=== PATIENT | female | born 1970 | race Caucasian/White ===

== ENCOUNTER 2017-12-14 15:39 | Emergency (ER) | payer OTHER ==
[~2017-12-14] VITALS: Ht 172.7 cm; Wt 90.7 kg
[~2017-12-14 15:39] MED LIST: AUGMENTIN 875 M1 TAB PO; CHANTIX STARTER1 TAB PO; CLARITIN10 MG PO; CYMBALTA30 M1 PO; NEURONTIN800 MG PO; PHENERGAN25 M1 PO; TRAMADOL HCL50 MG PO; TRAZODO50 MG PO; VICODIN 500 MG-1 TAB PO; ZANTAC 150150 MG PO; ZITHROMAX Z PA250 MG PO; ZOFRAN ODT4 MG; ZOFRAN4 MG PO
[2017-12-14] MEDS ORDERED: SUBOXONE 8 MG-1 EACH SL (15:50)
[2017-12-14] MEDS ORDERED: MELATONIN3 MG PO (15:51)
[2017-12-14] MEDS ORDERED: MEDROL DOSEPAK4 MG PO (16:20)
[2017-12-14] MEDS ORDERED: CYCLOBENZAPRINE10 MG PO (16:20)
[2017-12-14] MEDS ORDERED: NAPROSYN500 MG PO (16:20)
== END 2017-12-14 16:30 | disposition home or self-care (01) ==
LOC: ED 15:39
DX: S46.811A Strain of other muscles, fascia and tendons at shoulder and upper arm level, right arm, initial encounter (principal); F17.200 Nicotine dependence, unspecified, uncomplicated; Z98.51 Tubal ligation status; Z98.890 Other specified postprocedural states; Z79.899 Other long term (current) drug therapy; Z88.2 Allergy status to sulfonamides; Z88.6 Allergy status to analgesic agent; X58.XXXA Exposure to other specified factors, initial encounter; Y93.89 Activity, other specified; Y92.89 Other specified places as the place of occurrence of the external cause; Y99.9 Unspecified external cause status

== ENCOUNTER 2018-08-29 10:06 | Emergency (ER) | payer OTHER ==
[~2018-08-29] VITALS: Ht 172.7 cm; Wt 77.1 kg
[~2018-08-29 10:06] MED LIST changes: +CYCLOBENZAPRINE10 MG PO; +MEDROL DOSEPAK4 MG PO; +MELATONIN3 MG PO; +NAPROSYN500 MG PO; +SUBOXONE 8 MG-1 EACH SL
[2018-08-29] MEDS ORDERED: PROAIR HFA8.5 GM INH (10:16)
[2018-08-29] MEDS ORDERED: PREDNISONE10 MG PO (10:16)
[2018-08-29] MEDS ORDERED: FLONASE ALLERG9.9 ML NAS (10:16)
== END 2018-08-29 10:48 | disposition home or self-care (01) ==
LOC: ED 10:06
DX: B34.9 Viral infection, unspecified (principal); R03.0 Elevated blood-pressure reading, without diagnosis of hypertension; F17.200 Nicotine dependence, unspecified, uncomplicated; Z88.2 Allergy status to sulfonamides; Z88.8 Allergy status to other drugs, medicaments and biological substances; Z79.899 Other long term (current) drug therapy

== ENCOUNTER 2018-09-11 16:52 | Emergency (ER) | payer OTHER ==
[~2018-09-11] VITALS: Ht 172.7 cm; Wt 77.1 kg
[~2018-09-11 16:52] MED LIST changes: +FLONASE ALLERG9.9 ML NAS; +PREDNISONE10 MG PO; +PROAIR HFA8.5 GM INH
[2018-09-11] MEDS ORDERED: AUGMENTIN 875875 MG PO (18:52)
[2018-09-11] MEDS ORDERED: PREDNISONE50 MG PO (18:52)
== END 2018-09-11 18:58 | disposition home or self-care (01) ==
LOC: ED 16:52
DX: J32.0 Chronic maxillary sinusitis (principal); Z88.2 Allergy status to sulfonamides; Z88.8 Allergy status to other drugs, medicaments and biological substances

== ENCOUNTER 2018-10-18 12:34 | Emergency (ER) | payer OTHER ==
[~2018-10-18] VITALS: Ht 172.7 cm; Wt 79.4 kg
[~2018-10-18 12:34] MED LIST changes: +AUGMENTIN 875875 MG PO; +PREDNISONE50 MG PO
[2018-10-18] MEDS ORDERED: DELTASONE20 M1 PO (13:16)
[2018-10-18] MEDS ORDERED: VIBRAMYCIN100 MG PO (13:16)
== END 2018-10-18 13:28 | disposition home or self-care (01) ==
LOC: ED 12:34
DX: J44.1 Chronic obstructive pulmonary disease with (acute) exacerbation (principal); J06.9 Acute upper respiratory infection, unspecified; F17.200 Nicotine dependence, unspecified, uncomplicated; Z88.2 Allergy status to sulfonamides; Z88.8 Allergy status to other drugs, medicaments and biological substances; Z79.899 Other long term (current) drug therapy

== ENCOUNTER → 2018-12-26 | Outpatient (CLI) | payer OTHER ==
[~2018-12-26] MED LIST changes: +DELTASONE20 M1 PO; +VIBRAMYCIN100 MG PO
== END | disposition home or self-care (01) ==
LOC: RAD 16:56
DX: J45.40 Moderate persistent asthma, uncomplicated (principal); J20.9 Acute bronchitis, unspecified; J43.9 Emphysema, unspecified

== ENCOUNTER 2020-07-19 14:54 | Inpatient (IN) | payer OTHER ==
[~2020-07-19] VITALS: Ht 172.7 cm; Wt 88.6 kg
[2020-07-19 15:08] VITALS: BP 129/98
--- NOTE | 2020-07-19 15:20 | NUR ---
O2 INCREASED TO 6L NC FOR POX 88% ON 6L NC.
[2020-07-19 16:05] LABS: ABG BASE EXCESS 0.2 mmol/L (-2.0-2.0); ARTERIAL BLOOD GAS PH 7.484 (7.35-7.45)
[2020-07-19 16:10] LABS: BASO # 0.1 10*3/uL (0.0-0.1); BASO % 0.5 % (0.0-1.0); EOS % 0.3 % (1.0-4.0); HEMATOCRIT 37.4 % (37.0-47.0); LYMPH # 1.4 10*3/uL (1.3-4.4); LYMPH % 9.1 % (27.0-41.0); MEAN CELL VOLUME 87.8 fl (81.0-99.0); MEAN CORPUSCULAR HGB 27.9 pg (27.0-31.0); MEAN CORPUSCULAR HGB CONC 31.8 g/dl (33.0-37.0); MONO % 6.4 % (3.0-9.0); NEUT # 12.7 10*3/uL (2.3-7.9); NEUT % 82.7 % (47.0-73.0); PLATELET COUNT AUTOMATED 292 10*3/uL (130-400); RED BLOOD COUNT 4.26 10*6/uL (4.10-5.10); WHITE BLOOD COUNT 15.4 10*3/uL (4.8-10.8)
[2020-07-19 16:20] LABS: ACT PARTIAL THROMBO TIME 27.7 SECONDS (20.0-32.1)
[2020-07-19 16:24] LABS: ALBUMIN 2.7 gm/dl (3.1-4.5); ALKALINE PHOSPHATASE 184 U/L (45-117); BUN 16 mg/dl (7-24); CHLORIDE 108 mmol/L (98-107); CREATININE 0.82 mg/dL (0.55-1.02); POTASSIUM 3.4 mmol/L (3.5-5.1); SGOT/AST 207 IU/L (3-35); SGPT/ALT 169 U/L (12-78); SODIUM 140 mmol/L (136-145)
[2020-07-19 16:29] LABS: TROPONIN I 0.397 ng/ml (<0.045)
--- NOTE | 2020-07-19 17:04 | NUR ---
UNABLE TO TOLERATE BIPAP. PLACED ON HIGH FLOW CANNULA AT 10L.
[2020-07-19 17:12] VITALS: BP 124/79
[2020-07-19 18:16] VITALS: BP 109/58
[2020-07-19 18:35] VITALS: BP 108/67; BP 124/79
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
--- NOTE | 2020-07-19 19:45 | NUR ---
CALLED UNIT TO SEE IF THEY WERE READY FOR PT, NURSE NOT AVAILABLE AT TIME. WILL CALL BACK
--- NOTE | 2020-07-19 20:16 | NUR ---
CALLED UNIT AGAIN TO SEE IF THEY WERE READY FOR PT BUT WAS TOLD NURSE WAS NOT READY FOR PT YET AND WILL CALL WHEN READY
--- NOTE | 2020-07-19 20:30 | NUR ---
PT RESTING IN BED. NO ACUTE DISTRESS OR NEEDS AT THIS TIME.
--- NOTE | 2020-07-19 22:00 | NUR ---
2100CC OF URINE OBTAINED FROM CERVANTES.
--- NOTE | 2020-07-19 22:41 | NUR ---
RESPIRATORY ADVISED ME TO TRANSFER PT WITH NRB ON 10L 02 AND WHEN PT GOT INTO ROOM TO THEN CONNECT THE HIGH FLOW 02 BACK UP. PT TOLERATED TRANSFER WELL.
[2020-07-19 23:00] VITALS: BP 115/75
--- NOTE | 2020-07-19 23:00 | NUR ---
PATIENT DOES NOT WISH TO HAVE PHOTOS TAKEN; PATIENT STATES THAT HER SISTER HAS PHOTOS
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
[2020-07-19] MEDS ORDERED: PROAIR HFA8.5 GM INH (23:31)
[2020-07-19] MEDS ORDERED: CETIRIZINE HYDR10 MG PO (23:31)
[2020-07-19] MEDS ORDERED: DULOXETINE HCL60 MG PO (23:31)
--- NOTE | 2020-07-20 02:00 | NUR ---
Patient resting quietly with no c/o discomfort. Respirations easy and regular. Vital signs stable. No overt distress. SIRISHA KAPOOR
--- NOTE | 2020-07-20 02:14 | NUR ---
TORADOL GIVEN FOR C/O BACK PAIN
[2020-07-20 02:39] LABS: BILIRUBIN Negative (Negative); BLOOD Trace-Intact (Negative); CLARITY Clear (Clear); COLOR Yellow (Yellow); GLUCOSE Negative (Negative); KETONE Trace (Negative); LEUKO ESTERASE 1+ (Negative); NITRITE Negative (Negative); SPECIFIC GRAVITY 1.025 (1.001-1.030)
--- NOTE | 2020-07-20 02:49 | NUR ---
CARDIO ANSWERING SERVICE NOTIFIED OF CONSULT
[2020-07-20 03:07] LABS: BACTERIA 1+; EPITHELIAL CELLS 0-2; MUCOUS 1+; WBC 16-20 wbc/hpf (0-5)
[2020-07-20 04:48] VITALS: BP 127/90
[2020-07-20 06:10] LABS: BASO % 0.3 % (0.0-1.0); EOS % 0.2 % (1.0-4.0); HEMATOCRIT 38.2 % (37.0-47.0); LYMPH # 0.7 10*3/uL (1.3-4.4); LYMPH % 6.2 % (27.0-41.0); MEAN CORPUSCULAR HGB 27.5 pg (27.0-31.0); MEAN CORPUSCULAR HGB CONC 30.9 g/dl (33.0-37.0); MEAN PLATELET VOLUME 11.2 fl (9.6-12.3); MONO # 0.4 10*3/uL (0.1-1.0); MONO % 3.6 % (3.0-9.0); NEUT # 10.4 10*3/uL (2.3-7.9); NEUT % 88.6 % (47.0-73.0); PLATELET COUNT AUTOMATED 252 10*3/uL (130-400); RED BLOOD COUNT 4.29 10*6/uL (4.10-5.10); RED CELL DISTRI WIDTH 14.9 % (0-14.5); WHITE BLOOD COUNT 11.7 10*3/uL (4.8-10.8)
--- NOTE | 2020-07-20 06:12 | NUR ---
DR CHRISTY NOTIFIED OF CONSULT STATES TO GET BLOOD GAS THIS AM AND HE WILL SEE HER
[2020-07-20 06:14] LABS: ALBUMIN 2.6 gm/dl (3.1-4.5); BUN 18 mg/dl (7-24); CHLORIDE 106 mmol/L (98-107); CREATININE 0.78 mg/dL (0.55-1.02); POTASSIUM 3.6 mmol/L (3.5-5.1); SGOT/AST 96 IU/L (3-35); SGPT/ALT 158 U/L (12-78); SODIUM 136 mmol/L (136-145); TOTAL PROTEIN 7.3 gm/dL (6.4-8.2)
[2020-07-20 06:23] LABS: ALKALINE PHOSPHATASE 173 U/L (45-117); CPK 90 U/L (26-192); LDH 437 U/L (84-246)
[2020-07-20 08:00] VITALS: BP 114/66
[2020-07-20 08:36] LABS: ABG BASE EXCESS 0.4 mmol/L (-2.0-2.0); ARTERIAL BLOOD GAS PH 7.468 (7.35-7.45)
--- NOTE | 2020-07-20 09:00 | NUR ---
CM attempted to reach patient via phone with no success. Will follow up at a later time. CM will continue to follow for any discharge planning needs. She is in COVID isolation.
--- NOTE | 2020-07-20 09:10 | NUR ---
PT TEARFUL AND HAVING ANXIETY, C/O OF GENERALIZED DISCOMFORT RATING 5/10 PRN TYLENOL GIVEN AND ONE TIME DOSE OF VISTARIL
--- NOTE | 2020-07-20 10:00 | NUR ---
PT RESTING IN BED WITH EYES CLOSED NO COMPLAINTS AT THIS TIME,
[2020-07-20 12:00] VITALS: BP 105/64
--- NOTE | 2020-07-20 12:30 | NUR ---
PT AGREEING TO WEAR BIPAP, RESP NOTIFIED AND NOTIFIED
[2020-07-20 15:59] LABS: ABG BASE EXCESS 1.5 mmol/L (-2.0-2.0); ARTERIAL BLOOD GAS PH 7.428 (7.35-7.45)
[2020-07-20 16:00] VITALS: BP 115/73
[2020-07-20 20:00] VITALS: BP 92/79
--- NOTE | 2020-07-20 20:00 | NUR ---
PATIENT ON HFNC, STATES SHE WILL WAIT FOR RESPIRATORY TO BE PUT N BIPAP
[2020-07-21] VITALS: BP 100/68
--- NOTE | 2020-07-21 06:00 | NUR ---
IBUPROFEN GIVEN PER REQUEST FOR CHRONIC PAIN AND HEADACHE. WILL MONITOR. BIPAP IN USE.
[2020-07-21 06:26] LABS: BASO % 0.2 % (0.0-1.0); HEMATOCRIT 37.3 % (37.0-47.0); LYMPH % 8.4 % (27.0-41.0); MEAN CELL VOLUME 89.2 fl (81.0-99.0); MEAN CORPUSCULAR HGB 27.5 pg (27.0-31.0); MEAN CORPUSCULAR HGB CONC 30.8 g/dl (33.0-37.0); MEAN PLATELET VOLUME 11.2 fl (9.6-12.3); MONO # 0.6 10*3/uL (0.1-1.0); NEUT # 10.6 10*3/uL (2.3-7.9); NEUT % 85.5 % (47.0-73.0); PLATELET COUNT AUTOMATED 299 10*3/uL (130-400); RED BLOOD COUNT 4.18 10*6/uL (4.10-5.10); RED CELL DISTRI WIDTH 14.9 % (0-14.5); WHITE BLOOD COUNT 12.4 10*3/uL (4.8-10.8)
[2020-07-21 06:56] LABS: ALBUMIN 2.4 gm/dl (3.1-4.5); ALKALINE PHOSPHATASE 134 U/L (45-117); BUN 22 mg/dl (7-24); CHLORIDE 109 mmol/L (98-107); CREATININE 0.64 mg/dL (0.55-1.02); LDH 322 U/L (84-246); SGOT/AST 51 IU/L (3-35); SGPT/ALT 128 U/L (12-78); SODIUM 142 mmol/L (136-145); TOTAL PROTEIN 6.8 gm/dL (6.4-8.2)
[2020-07-21 08:00] VITALS: BP 97/40
[2020-07-21 08:07] LABS: ABG BASE EXCESS 1.3 mmol/L (-2.0-2.0); ARTERIAL BLOOD GAS PH 7.407 (7.35-7.45)
--- NOTE | 2020-07-21 09:17 | NUR ---
Lead Simulation Modeling Engineer in to talk to patient. Patient states lives at home with her sister. There are 0 steps in the home. Physician: Joseph Huynh [facility]: [facility] Home health services: none Patient's level of ADLs: MINIMAL ASSIST Patient has working utilities: yes DME: walker Follow-up physician's appointment after d/c: will be made by the hospitalist nurse director upon discharge Does patient want to access PORTAL?: no Discharge plan discussed with patient. She lives at home with he sister. She is independent in her ADLs and ambulates with a walker. Discussed home health care services and she is unsure of her home needs at this time. CM will continue to follow for any discharge planning needs. When medically stable she will be discharged to home. She states her sister will provide transportation on discharge. ZUHAIR MARRERO
--- NOTE | 2020-07-21 09:17 | NUR ---
Baling Press Operator spoke to patient via phone. Patient states lives at home with her sister. There are 0 steps in the home. Physician: Joseph Huynh [facility]: [facility] Home health services: none Patient's level of ADLs: MINIMAL ASSIST Patient has working utilities: yes DME: walker Follow-up physician's appointment after d/c: will be made by the hospitalist nurse director upon discharge Does patient want to access PORTAL?: no Discharge plan discussed with patient. She lives at home with he sister. She is independent in her ADLs and ambulates with a walker. Discussed home health care services and she is unsure of her home needs at this time. CM will continue to follow for any discharge planning needs. When medically stable she will be discharged to home. She states her sister will provide transportation on discharge. ZUHAIR MARRERO
[2020-07-21 12:00] VITALS: BP 106/60
--- NOTE | 2020-07-21 13:24 | NUR ---
CERVANTES CATHETER REMOVED PER ORDER.
[2020-07-21 16:00] VITALS: BP 82/54
--- NOTE | 2020-07-21 16:42 | NUR ---
PT MEDICATED WITH PRN MOTRIN FOR C/O A HEADACHE AND BACK PAIN. WILL MONITOR.
[2020-07-21 20:00] VITALS: BP 100/58
[2020-07-22] VITALS: BP 106/55
--- NOTE | 2020-07-22 00:05 | NUR ---
PATIENT PLACED ON BIPAP FOR HS
--- NOTE | 2020-07-22 00:07 | NUR ---
MEDICATED WITH PRN MOTRIN FOR CO BODY ACHES AND HEADACHE. WILL ASSESS EFFECTIVENESS.
--- NOTE | 2020-07-22 01:07 | NUR ---
PATIENT SLEEPING. RESP EASY AND REGULAR. MOTRIN APPEARS TO BE EFFECTIVE. CALL LIGHT IN REACH.
--- NOTE | 2020-07-22 03:41 | NUR ---
24 HR chart check completed.
--- NOTE | 2020-07-22 05:03 | NUR ---
PATIENT MEDICATED WITH PRN TYLENOL FOR CO A HEADACHE. WILL ASSESS EFFECTIVENESS. CALL LIGHT IN REACH.
[2020-07-22 06:39] LABS: BASO % 0.1 % (0.0-1.0); EOS % 0.1 % (1.0-4.0); HEMATOCRIT 39.2 % (37.0-47.0); LYMPH % 13.5 % (27.0-41.0); MEAN CELL VOLUME 90.7 fl (81.0-99.0); MEAN CORPUSCULAR HGB 27.5 pg (27.0-31.0); MEAN CORPUSCULAR HGB CONC 30.4 g/dl (33.0-37.0); MEAN PLATELET VOLUME 10.5 fl (9.6-12.3); MONO % 6.9 % (3.0-9.0); NEUT # 11.4 10*3/uL (2.3-7.9); PLATELET COUNT AUTOMATED 314 10*3/uL (130-400); RED BLOOD COUNT 4.32 10*6/uL (4.10-5.10); RED CELL DISTRI WIDTH 14.9 % (0-14.5); WHITE BLOOD COUNT 14.7 10*3/uL (4.8-10.8)
[2020-07-22 07:06] LABS: ALBUMIN 2.4 gm/dl (3.1-4.5); ALKALINE PHOSPHATASE 125 U/L (45-117); BUN 24 mg/dl (7-24); CHLORIDE 110 mmol/L (98-107); CREATININE 0.72 mg/dL (0.55-1.02); POTASSIUM 3.9 mmol/L (3.5-5.1); SGOT/AST 31 IU/L (3-35); SGPT/ALT 112 U/L (12-78); SODIUM 144 mmol/L (136-145); TOTAL PROTEIN 6.6 gm/dL (6.4-8.2)
[2020-07-22 08:52] LABS: ABG BASE EXCESS 1.9 mmol/L (-2.0-2.0); ARTERIAL BLOOD GAS PH 7.421 (7.35-7.45)
[2020-07-22 09:00] VITALS: BP 109/61
[2020-07-22 12:00] VITALS: BP 104/74
[2020-07-22 16:00] VITALS: BP 104/56
[2020-07-22 20:00] VITALS: BP 117/73
--- NOTE | 2020-07-22 23:23 | NUR ---
PATIENT DOES NOT WANT TO GO ON BIPAP AT THIS TIME. PATIENT CURRENTLY ON 8L SPO2 96%.
[2020-07-23] VITALS: BP 120/82
--- NOTE | 2020-07-23 00:19 | NUR ---
PATIENT PLACED ON BIPAP 14/10 50%
--- NOTE | 2020-07-23 03:29 | NUR ---
CHART CHECK COMPLETE.
[2020-07-23 06:42] LABS: BUN 19 mg/dl (7-24); CHLORIDE 108 mmol/L (98-107); CREATININE 0.67 mg/dL (0.55-1.02); SODIUM 142 mmol/L (136-145)
[2020-07-23 07:40] LABS: ABG BASE EXCESS 4.3 mmol/L (-2.0-2.0); ARTERIAL BLOOD GAS PH 7.406 (7.35-7.45)
[2020-07-23 08:00] VITALS: BP 115/88
[2020-07-23 12:00] VITALS: BP 122/65
[2020-07-23 16:00] VITALS: BP 130/62
--- NOTE | 2020-07-23 20:02 | NUR ---
PATIENT PLACED ON BIPAP AT THIS TIME. TOLERATING WELL.
--- NOTE | 2020-07-23 21:44 | NUR ---
PATIENT REMAINS ON BIPAP WITH NO DISTRESS NOTED.
[2020-07-24] VITALS: BP 100/52
--- NOTE | 2020-07-24 00:30 | NUR ---
Pt placed back on BiPap 14/10 and 50% - Alarms on and audible.
--- NOTE | 2020-07-24 03:40 | NUR ---
24 HR chart check completed.
--- NOTE | 2020-07-24 04:58 | NUR ---
PATIENT OFF OF BIPAP AT THIS TIME PER REQUEST. PLACED ON 12 LITERS HIGH FLOW NASAL CANNULA.
[2020-07-24 06:33] LABS: BASO % 0.2 % (0.0-1.0); EOS % 0.2 % (1.0-4.0); HEMATOCRIT 43.4 % (37.0-47.0); LYMPH # 2.7 10*3/uL (1.3-4.4); LYMPH % 15.8 % (27.0-41.0); MEAN CELL VOLUME 90.4 fl (81.0-99.0); MEAN CORPUSCULAR HGB 27.3 pg (27.0-31.0); MEAN CORPUSCULAR HGB CONC 30.2 g/dl (33.0-37.0); MEAN PLATELET VOLUME 10.5 fl (9.6-12.3); MONO % 5.8 % (3.0-9.0); NEUT # 12.9 10*3/uL (2.3-7.9); NEUT % 76.2 % (47.0-73.0); PLATELET COUNT AUTOMATED 368 10*3/uL (130-400); RED CELL DISTRI WIDTH 14.6 % (0-14.5)
--- NOTE | 2020-07-24 06:38 | NUR ---
PATIENT RESTING IN BED WITH NO S/S OF DISTRESS. DID WELL ON THE BIPAP THROUGHOUT THE NIGHT. BED IN LOWEST POSITION, CALL LIGHT IN REACH
[2020-07-24 06:49] LABS: BUN 17 mg/dl (7-24); CHLORIDE 103 mmol/L (98-107); CREATININE 0.72 mg/dL (0.55-1.02); POTASSIUM 3.5 mmol/L (3.5-5.1); SODIUM 140 mmol/L (136-145)
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
[2020-07-24 08:00] VITALS: BP 109/68
[2020-07-24 08:43] LABS: ABG BASE EXCESS 6.9 mmol/L (-2.0-2.0); ARTERIAL BLOOD GAS PH 7.432 (7.35-7.45)
--- NOTE | 2020-07-24 09:00 | NUR ---
CM in to see patient. No new needs or request at this time. She is unsure of any home needs. CM will continue to follow for any home needs. When medically stable she will be discharged to home.
[2020-07-24 12:00] VITALS: BP 109/60
--- NOTE | 2020-07-24 14:10 | NUR ---
PT RESTING IN ROOM. RESPS EASY AND NON LABORED ON 12 L HFNC. VOICES NO CONCERNS AT THIS TIME. CALL LIGHT WITHIN REACH.
[2020-07-24 16:00] VITALS: BP 110/57
[2020-07-24 20:00] VITALS: BP 116/68
--- NOTE | 2020-07-24 21:10 | NUR ---
DR NGO AWARE OF PATIENT'S BLOOD PRESSURE AND HEART RATE. STATE TO GIVE THE SCHEDULED LOPRESSOR.
[2020-07-25] VITALS: BP 116/61
--- NOTE | 2020-07-25 00:05 | NUR ---
Pt placed on BiPap 14/10 FiO2 50% - Alarms on and audible
[2020-07-25 06:57] LABS: HEMATOCRIT 44.4 % (37.0-47.0); MEAN CELL VOLUME 90.6 fl (81.0-99.0); MEAN CORPUSCULAR HGB 27.1 pg (27.0-31.0); MEAN PLATELET VOLUME 10.1 fl (9.6-12.3); PLATELET COUNT AUTOMATED 387 10*3/uL (130-400); RED CELL DISTRI WIDTH 14.6 % (0-14.5); WHITE BLOOD COUNT 19.5 10*3/uL (4.8-10.8)
[2020-07-25 07:14] LABS: BUN 18 mg/dl (7-24); CHLORIDE 103 mmol/L (98-107); CREATININE 0.69 mg/dL (0.55-1.02); SODIUM 140 mmol/L (136-145)
[2020-07-25 07:38] LABS: PLATELET SUFFICIENCY NORMAL (NORMAL); TOTAL CELLS COUNTED 100 #CELLS
[2020-07-25 08:07] LABS: ABG BASE EXCESS 5.2 mmol/L (-2.0-2.0); ARTERIAL BLOOD GAS PH 7.433 (7.35-7.45)
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
--- NOTE | 2020-07-25 08:44 | NUR ---
PT MEDICATED WITH PO MOTRIN PER PRN ORDER FOR C/O SHOULDER PAIN. RATES PAIN 03/27. WILL MONITOR EFFECTIVENESS.
--- NOTE | 2020-07-25 08:47 | NUR ---
INFORMATION TECHNOLOGY PROJECT MANAGER ATTEMPTED TO CALL THIS PATIENTS ROOM X2 TIMES. WILL ATTEMPT TO CONTACT THIS PATIENT AT A LATER TIME. PER DR. BAINS 07/24/2020 2133 PROGRESS NOTE, POSSIBLE FALSE NEGATIVE COVID RESULT.
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
[2020-07-25 09:26] VITALS: BP 110/58
--- NOTE | 2020-07-25 09:44 | NUR ---
MOTRIN RELIEVING PAIN PER PT. WILL CONTINUE TO MONITOR.
[2020-07-25 12:00] VITALS: BP 108/54
[2020-07-25 13:08] LABS: ALDOLASE 11.2 U/L (3.3-10.3); ANGIOTENSIN-CONVERTING ENZYME 37 U/L (14-82)
--- NOTE | 2020-07-25 14:28 | NUR ---
Faxed home health referral to [facility] along with face to face and clinical
[2020-07-25 16:00] VITALS: BP 98/52
--- NOTE | 2020-07-25 17:08 | NUR ---
PT MEDICATED WITH PO MOTRIN PER PRN ORDER FOR C/O HEADACHE. WILL MONITOR EFFECTIVENESS.
[2020-07-25 18:11] LABS: IGG SUBCLASS 1 539 mg/dL (248-810); IGG SUBCLASS 2 193 mg/dL (130-555); IGG SUBCLASS 3 26 mg/dL (15-102); IGG SUBCLASS 4 11 mg/dL (2-96); IMMUNOGLOBULIN G, QNT 852 mg/dL (586-1602); IMMUNOGLOBULIN M, QNT 89 mg/dL (26-217); RHEUMATOID ARTHRITIS FACTOR <10.0 IU/mL (0.0-13.9)
[2020-07-25 20:00] VITALS: BP 109/51
--- NOTE | 2020-07-25 21:36 | NUR ---
PATIENT RESTING IN BED AND DENIES SHORTNESS OF BREATH OR PAIN AT THIS TIME. BED IN LOWEST POSITION, CALL LIGHT IN REACH
--- NOTE | 2020-07-25 23:27 | NUR ---
PATIENT PLACED ON BIPAP AT THIS TIME
[2020-07-26 01:09] VITALS: BP 124/60
--- NOTE | 2020-07-26 01:10 | NUR ---
PATIENT CALLED OUT C/O MIDSTERNAL CHEST PAIN. VITALS WNL AND CHARTED. STAT EKG ORDERED
--- NOTE | 2020-07-26 01:28 | NUR ---
DR NGO AWARE OF PATIENT C/O CHEST PAIN
--- NOTE | 2020-07-26 01:30 | NUR ---
MEDICATED WITH PRN TYLENOL FOR C/O CHEST PAIN
--- NOTE | 2020-07-26 02:30 | NUR ---
TYLENOL EFFECTIVE PER PATIENT
[2020-07-26 06:39] LABS: HEMATOCRIT 42.6 % (37.0-47.0); MEAN CELL VOLUME 90.1 fl (81.0-99.0); MEAN CORPUSCULAR HGB 27.3 pg (27.0-31.0); MEAN CORPUSCULAR HGB CONC 30.3 g/dl (33.0-37.0); MEAN PLATELET VOLUME 9.9 fl (9.6-12.3); PLATELET COUNT AUTOMATED 343 10*3/uL (130-400); RED BLOOD COUNT 4.73 10*6/uL (4.10-5.10); RED CELL DISTRI WIDTH 14.3 % (0-14.5); WHITE BLOOD COUNT 21.6 10*3/uL (4.8-10.8)
[2020-07-26 07:08] LABS: BUN 20 mg/dl (7-24); CHLORIDE 103 mmol/L (98-107); CREATININE 0.67 mg/dL (0.55-1.02); POTASSIUM 3.8 mmol/L (3.5-5.1); SODIUM 138 mmol/L (136-145)
--- NOTE | 2020-07-26 08:01 | NUR ---
PT NOT ON BIPAP AT THIS TIME
[2020-07-26 08:13] LABS: PLATELET SUFFICIENCY NORMAL (NORMAL); TOTAL CELLS COUNTED 100 #CELLS
[2020-07-26 08:16] LABS: ABG BASE EXCESS 6.1 mmol/L (-2.0-2.0); ARTERIAL BLOOD GAS PH 7.454 (7.35-7.45)
--- NOTE | 2020-07-26 08:30 | NUR ---
PT NOT ON BIPAP AT THIS TIME
--- NOTE | 2020-07-26 09:00 | NUR ---
CM in to see patient. No new needs or request at this time. CM will continue to follow for any home needs. When medically stable she will be discharged to home with [facility] services.
[2020-07-26 12:00] VITALS: BP 127/59
--- NOTE | 2020-07-26 14:19 | NUR ---
PULSE OX TITRATED DOWN TO 3LNC PER RESPIRATORY. CONT.PULSE OX MAINTAINED. PULSE OX DIPPING DOWN TO 89-90%. 3L INCREASED TO 4LNC. PULSE OX NOW 93-94% VIA 4LNC. WILL CONTINUE TO MONITOR. NO VOICED COMPLAINTS. CALL LIGHT WITHIN REACH. VSS.
--- NOTE | 2020-07-26 14:26 | NUR ---
02 TITRATED DOWN TO 3LNC. PULSE OX 90-92% VIA 3LNC. NO VOICED COMPLAINTS PER PT. WILL CONTINUE TO MONITOR. CALL LIGHT WITHIN REACH.
[2020-07-26 16:00] VITALS: BP 114/59
[2020-07-26 20:00] VITALS: BP 107/58
--- NOTE | 2020-07-26 20:00 | NUR ---
PATIENT SLEEPING, BUT AROUSES EASILY. PATIENT ON 3L NC AND SATTING 92-93%. PATIENT STATES SHE IS TIRED TODAY BUT IS GLAD THAT SHE IS ONLY ON 3L. PATIENT ALERT AND ORIENTED AND AMBULATORY. PATIENT REQUESTING DULCOLAX TO HELP HER TAKE AN ACTUAL BOWEL MOVEMENT. SHE STATED SHE HAS LITTLE BOWEL MOVEMENTS AT A TIME AND WAS CONSTIPATED. PATIENT HAS A DRY COUGH BUT NO OTHER COMPLAINTS. CALL LIGHT WITHIN REACH, WILL MONITOR
--- NOTE | 2020-07-26 22:04 | NUR ---
PRN DULCOLAX GIVEN FOR PT COMPLAINTS OF CONSTIPATION AND SMALL HARD BOWEL MOVEMENTS. CALL LIGHT WITHIN REACH, WILL MONITOR
[2020-07-27] VITALS: BP 116/56
--- NOTE | 2020-07-27 | NUR ---
PATIENT STATES THAT SHE WILL GO ON HER BIPAP WHEN SHE GETS WASHED UP.
--- NOTE | 2020-07-27 03:23 | NUR ---
PATIENT PLACED ON BIPAP AT THIS TIME
--- NOTE | 2020-07-27 03:30 | NUR ---
24 HR chart check completed.
[2020-07-27 06:15] LABS: HEMATOCRIT 42.1 % (37.0-47.0); MEAN CELL VOLUME 90.3 fl (81.0-99.0); MEAN CORPUSCULAR HGB 27.3 pg (27.0-31.0); MEAN CORPUSCULAR HGB CONC 30.2 g/dl (33.0-37.0); MEAN PLATELET VOLUME 10.1 fl (9.6-12.3); PLATELET COUNT AUTOMATED 361 10*3/uL (130-400); RED BLOOD COUNT 4.66 10*6/uL (4.10-5.10); RED CELL DISTRI WIDTH 14.6 % (0-14.5); WHITE BLOOD COUNT 21.6 10*3/uL (4.8-10.8)
[2020-07-27 07:01] LABS: ATYPICAL LYMPHS 1 % (0-0); PLATELET SUFFICIENCY NORMAL (NORMAL); TOTAL CELLS COUNTED 100 #CELLS
[2020-07-27 07:53] LABS: ABG BASE EXCESS 6.4 mmol/L (-2.0-2.0); ARTERIAL BLOOD GAS PH 7.43 (7.35-7.45)
[2020-07-27 08:00] VITALS: BP 116/51
[2020-07-27 08:08] LABS: ATYPICAL PANCA <1:20 titer (Neg:<1:20); CYTOPLASMIC (C-ANCA) <1:20 titer (Neg:<1:20)
--- NOTE | 2020-07-27 08:36 | NUR ---
PATIENT MEDICATED WITH MILK OF MAG AT THIS TIME FOR COMPLAINTS OF CONSTIPATION. WILL MONITOR FOR EFFECTIVENESS.
--- NOTE | 2020-07-27 09:00 | NUR ---
CM in to see patient. No new needs or request at this time. CM will continue to follow for any home needs. When medically stable she will be discharged to home with [facility] services.
[2020-07-27 12:00] VITALS: BP 107/60
--- NOTE | 2020-07-27 12:55 | NUR ---
WALKED PT TO SEE IF SHE DESATED AND SHE DID NOT. SPO2 90-94% RA.
--- NOTE | 2020-07-27 14:35 | NUR ---
NOTIFIED THAT PT OK TO BE DISCHARGED PER & TO CONTINUE WITH PREDNISONE X 2 WEEKS.
[2020-07-27] MEDS ORDERED: ATORVASTATIN CA20 M1 PO (14:53)
[2020-07-27] MEDS ORDERED: PREDNISONE10 MG PO (14:53)
[2020-07-27] MEDS ORDERED: LOPRESSOR25 MG PO (14:53)
[2020-07-27] MEDS ORDERED: ASPIRIN ADULT L81 M2 PO (14:54)
--- NOTE | 2020-07-27 16:06 | NUR ---
Discharge instructions reviewed with patient/family. Patient receptive and verbalizes understanding. Follow-up care arranged. Written instructions given to patient/family. HEPLOCK DISCONTINUED. CONT POX MONITOR REMOVED. WENT OVER PRESCRIPTIONS WITH PT. PT STATES UNDERSTANDING. TAKEN OFF FLOOE VIA WHEELCHAIR, PICKED UP BY FAMILY MEMBER. CHRISTY TOLBERT
[2020-07-27 18:09] LABS: IMMUNOGLOBULIN IgE 24 IU/mL (6-495)
--- NOTE | 2020-07-28 07:40 | NUR ---
Faxed discharge instructions and summary to [facility] and notified of dc 07/27
[2020-08-13] MEDS ORDERED: NAPROSYN500 MG PO (10:27)
[2020-08-13] MEDS ORDERED: TYLENOL325 M1 PO (10:27)
== END 2020-07-27 16:06 | disposition home health service (06) | DRG 720 ==
LOC: ED 14:54 → 4E 17:56 → EDHOLD 17:56 → 4E 18:32
PROVIDERS: Emergency Medicine; Internal Medicine; Internal Medicine Critical Care Medicine; Student in an Organized Health Care Education/Training Program; ADMIT Internal Medicine; ATTEND Internal Medicine
PROC: 5A0945A Assistance with Respiratory Ventilation, 24-96 Consecutive Hours, High Flow/Velocity Cannula (ICD-10-PCS; 2020-07-19)
PROC: 5A09357 Assistance with Respiratory Ventilation, Less than 24 Consecutive Hours, Continuous Positive Airway Pressure (ICD-10-PCS; principal; 2020-07-20)
PROC: 5A09357 Assistance with Respiratory Ventilation, Less than 24 Consecutive Hours, Continuous Positive Airway Pressure (ICD-10-PCS; 2020-07-23)
PROC: 5A09357 Assistance with Respiratory Ventilation, Less than 24 Consecutive Hours, Continuous Positive Airway Pressure (ICD-10-PCS; 2020-07-24)
PROC: 5A09357 Assistance with Respiratory Ventilation, Less than 24 Consecutive Hours, Continuous Positive Airway Pressure (ICD-10-PCS; 2020-07-25)
PROC: 5A0935A Assistance with Respiratory Ventilation, Less than 24 Consecutive Hours, High Flow/Velocity Cannula (ICD-10-PCS; 2020-07-25)
DX: A41.9 Sepsis, unspecified organism (principal); R65.20 Severe sepsis without septic shock; J18.9 Pneumonia, unspecified organism; J96.01 Acute respiratory failure with hypoxia; I21.A1 Myocardial infarction type 2; E44.0 Moderate protein-calorie malnutrition; E83.41 Hypermagnesemia; E87.6 Hypokalemia; R74.01 Elevation of levels of liver transaminase levels; D68.59 Other primary thrombophilia; D72.829 Elevated white blood cell count, unspecified; F41.1 Generalized anxiety disorder; I50.31 Acute diastolic (congestive) heart failure; E78.5 Hyperlipidemia, unspecified; J43.9 Emphysema, unspecified; F17.210 Nicotine dependence, cigarettes, uncomplicated; Z79.899 Other long term (current) drug therapy; Z20.828 Contact with and (suspected) exposure to other viral communicable diseases; Z88.2 Allergy status to sulfonamides; Z88.8 Allergy status to other drugs, medicaments and biological substances; Z98.51 Tubal ligation status; I25.2 Old myocardial infarction; Z68.29 Body mass index [BMI] 29.0-29.9, adult

== ENCOUNTER 2020-08-12 20:19 | Emergency (ER) | payer OTHER ==
[~2020-08-12 20:19] MED LIST changes: +ASPIRIN ADULT L81 M2 PO; +ATORVASTATIN CA20 M1 PO; +CETIRIZINE HYDR10 MG PO; +DULOXETINE HCL60 MG PO; +LOPRESSOR25 MG PO
[2020-08-13] MEDS ORDERED: NAPROSYN500 MG PO (10:27)
[2020-08-13] MEDS ORDERED: TYLENOL325 M1 PO (10:27)
== END 2020-08-12 23:35 | disposition home or self-care (01) ==
LOC: ED 20:19
DX: S82.832A Other fracture of upper and lower end of left fibula, initial encounter for closed fracture (principal); S52.021A Displaced fracture of olecranon process without intraarticular extension of right ulna, initial encounter for closed fracture; S60.211A Contusion of right wrist, initial encounter; F17.200 Nicotine dependence, unspecified, uncomplicated; Z88.2 Allergy status to sulfonamides; Z88.8 Allergy status to other drugs, medicaments and biological substances; Z79.899 Other long term (current) drug therapy; W00.0XXA Fall on same level due to ice and snow, initial encounter; Y93.89 Activity, other specified; Y92.89 Other specified places as the place of occurrence of the external cause; Y99.8 Other external cause status

== ENCOUNTER 2020-10-01 16:40 | Emergency (ER) | payer OTHER ==
[~2020-10-01] VITALS: Ht 172.7 cm; Wt 90.7 kg
[~2020-10-01 16:40] MED LIST changes: +TYLENOL325 M1 PO
== END 2020-10-01 21:12 | disposition home or self-care (01) ==
LOC: ED 16:40
DX: G43.909 Migraine, unspecified, not intractable, without status migrainosus (principal); Z88.2 Allergy status to sulfonamides; Z88.8 Allergy status to other drugs, medicaments and biological substances; Z79.899 Other long term (current) drug therapy; Z98.890 Other specified postprocedural states; Z98.51 Tubal ligation status

== ENCOUNTER → 2020-10-26 | Outpatient (CLI) | payer OTHER | END | disposition home or self-care (01) | LOC: RAD 16:25 | PROVIDERS: ATTEND Nurse Practitioner Family | DX: M54.12 Radiculopathy, cervical region (principal); M54.2 Cervicalgia ==

== ENCOUNTER 2022-04-14 20:24 | Emergency (ER) | payer OTHER ==
[~2022-04-14] VITALS: Ht 170.1 cm; Wt 86.2 kg
[2022-04-15] MEDS ORDERED: ZITHROMAX250 MG PO (01:09)
== END 2022-04-15 01:57 | disposition home or self-care (01) ==
LOC: ED 20:24
DX: U07.1 COVID-19 (principal); J40 Bronchitis, not specified as acute or chronic; F41.9 Anxiety disorder, unspecified; J44.9 Chronic obstructive pulmonary disease, unspecified; G43.909 Migraine, unspecified, not intractable, without status migrainosus; Z88.2 Allergy status to sulfonamides; Z88.8 Allergy status to other drugs, medicaments and biological substances; Z79.899 Other long term (current) drug therapy; Z79.82 Long term (current) use of aspirin; Z98.51 Tubal ligation status; Z98.890 Other specified postprocedural states; Z53.20 Procedure and treatment not carried out because of patient's decision for unspecified reasons

== ENCOUNTER → 2022-09-17 | Outpatient (CLI) | payer OTHER ==
[~2022-09-17] MED LIST changes: +ZITHROMAX250 MG PO
== END | disposition home or self-care (01) ==
LOC: LAB 16:25
PROVIDERS: ATTEND Nurse Practitioner Family
DX: F11.20 Opioid dependence, uncomplicated (principal)

== ENCOUNTER 2022-10-20 17:27 | Emergency (ER) | payer OTHER ==
[~2022-10-20] VITALS: Ht 172.7 cm; Wt 90.7 kg
[2022-10-20 17:53] LABS: BILIRUBIN 3+ (Negative); BLOOD 1+ (Negative); CLARITY Turbid (Clear); COLOR Red (Yellow); GLUCOSE Negative (Negative); KETONE Negative (Negative); LEUKO ESTERASE 3+ (Negative); NITRITE Positive (Negative); PH 5.5 (4.5-8.0); SPECIFIC GRAVITY 1.025 (1.001-1.030)
[2022-10-20 18:04] LABS: WBC TNTC wbc/hpf (0-5)
[2022-10-20 18:27] LABS: BASO # 0.1 10*3/uL (0.0-0.1); BASO % 0.7 % (0.0-1.0); EOS # 0.2 10*3/uL (0.0-0.4); EOS % 2.7 % (1.0-4.0); HEMATOCRIT 45.4 % (37.0-47.0); LYMPH # 1.5 10*3/uL (1.3-4.4); LYMPH % 20.9 % (27.0-41.0); MEAN CELL VOLUME 91.2 fl (81.0-99.0); MEAN CORPUSCULAR HGB 28.7 pg (27.0-31.0); MEAN CORPUSCULAR HGB CONC 31.5 g/dl (33.0-37.0); MEAN PLATELET VOLUME 10.6 fl (9.6-12.3); MONO # 0.5 10*3/uL (0.1-1.0); MONO % 7.3 % (3.0-9.0); NEUT # 4.9 10*3/uL (2.3-7.9); NEUT % 68.1 % (47.0-73.0); PLATELET COUNT AUTOMATED 221 10*3/uL (130-400); RED BLOOD COUNT 4.98 10*6/uL (4.10-5.10); RED CELL DISTRI WIDTH 13.2 % (0-14.5); WHITE BLOOD COUNT 7.1 10*3/uL (4.8-10.8)
[2022-10-20 18:41] LABS: ACT PARTIAL THROMBO TIME 28.1 SECONDS (20.0-32.1)
[2022-10-20 18:42] LABS: ALKALINE PHOSPHATASE 114 U/L (46-116); BUN 13 mg/dl (9-23); CHLORIDE 109 mmol/L (98-107); LIPASE 36 U/L (12-53); POTASSIUM 3.8 mmol/L (3.4-5.1); SGPT/ALT 9 U/L (10-49); TOTAL PROTEIN 6.7 gm/dL (6.0-8.0)
[2022-10-20] MEDS ORDERED: CEFDINIR300 MG PO (20:53)
== END 2022-10-20 18:06 | disposition home or self-care (01) ==
LOC: ED 17:27
PROVIDERS: Physician Assistant; Student in an Organized Health Care Education/Training Program
DX: N39.0 Urinary tract infection, site not specified (principal); N20.0 Calculus of kidney; F41.9 Anxiety disorder, unspecified; R31.9 Hematuria, unspecified; J44.9 Chronic obstructive pulmonary disease, unspecified; Z88.2 Allergy status to sulfonamides; Z88.8 Allergy status to other drugs, medicaments and biological substances

== ENCOUNTER 2023-04-06 01:41 | Emergency (ER) | payer OTHER ==
[~2023-04-06] VITALS: Ht 172.7 cm; Wt 90.7 kg
[~2023-04-06 01:41] MED LIST changes: +CEFDINIR300 MG PO
[2023-04-06 02:28] LABS: BASO # 0.1 10*3/uL (0.0-0.1); BASO % 0.6 % (0.0-1.0); EOS # 0.1 10*3/uL (0.0-0.4); EOS % 0.9 % (1.0-4.0); HEMATOCRIT 44.5 % (37.0-47.0); LYMPH # 1.6 10*3/uL (1.3-4.4); LYMPH % 16.7 % (27.0-41.0); MEAN CELL VOLUME 88.8 fl (81.0-99.0); MEAN CORPUSCULAR HGB 29.5 pg (27.0-31.0); MEAN CORPUSCULAR HGB CONC 33.3 g/dl (33.0-37.0); MEAN PLATELET VOLUME 10.3 fl (9.6-12.3); MONO # 0.7 10*3/uL (0.1-1.0); MONO % 7.1 % (3.0-9.0); NEUT # 7.3 10*3/uL (2.3-7.9); NEUT % 74.1 % (47.0-73.0); PLATELET COUNT AUTOMATED 281 10*3/uL (130-400); RED BLOOD COUNT 5.01 10*6/uL (4.10-5.10); RED CELL DISTRI WIDTH 13.2 % (0-14.5); WHITE BLOOD COUNT 9.8 10*3/uL (4.8-10.8)
[2023-04-06 02:49] LABS: ALKALINE PHOSPHATASE 111 U/L (46-116); BUN 14 mg/dl (9-23); CHLORIDE 105 mmol/L (98-107); LIPASE 55 U/L (12-53); POTASSIUM 3.3 mmol/L (3.4-5.1); SGPT/ALT 13 U/L (10-49); TOTAL PROTEIN 7.3 gm/dL (6.0-8.0)
[2023-04-06 03:56] LABS: BILIRUBIN Negative (Negative); BLOOD 3+ (Negative); CLARITY Cloudy (Clear); COLOR Dark Yellow (Yellow); GLUCOSE Negative (Negative); KETONE Trace (Negative); LEUKO ESTERASE 1+ (Negative); NITRITE Negative (Negative); PH 6.5 (4.5-8.0); SPECIFIC GRAVITY >= 1.030 (1.001-1.030)
[2023-04-06 04:11] LABS: CALCIUM OXALATE CRYSTALS 1+; RBC TNTC rbc/hpf (0-2)
[2023-04-06 04:12] LABS: BACTERIA 1+; WBC 16-20 wbc/hpf (0-5)
[2023-04-06] MEDS ORDERED: FLOMAX0.4 MG PO (04:16)
[2023-04-06] MEDS ORDERED: ONDANSETRON4 MG SL (04:16)
[2023-04-06] MEDS ORDERED: NAPROXEN250 MG PO (04:16)
== END 2023-04-06 04:32 | disposition home or self-care (01) ==
LOC: ED 01:41
PROVIDERS: Internal Medicine
DX: N13.2 Hydronephrosis with renal and ureteral calculous obstruction (principal); E87.6 Hypokalemia; F17.200 Nicotine dependence, unspecified, uncomplicated; Z87.442 Personal history of urinary calculi; Z88.2 Allergy status to sulfonamides; Z88.8 Allergy status to other drugs, medicaments and biological substances; Z79.2 Long term (current) use of antibiotics; Z79.899 Other long term (current) drug therapy; Z79.82 Long term (current) use of aspirin; Z98.51 Tubal ligation status; Z98.890 Other specified postprocedural states